=== PATIENT | male | born 1950 | race Caucasian/White ===

== ENCOUNTER 2018-06-21 02:40 | Inpatient (IN) | payer OTHER ==
[~2018-06-21] VITALS: Ht 182.9 cm; Wt 111.1 kg
[2018-06-21 02:42] VITALS: BP_SYST 163
[2018-06-21] MEDS ORDERED: ASPIRIN 81 MG TAB.CHEW PO ONE (03:00)
[2018-06-21] MEDS ORDERED: NITROGLYCERIN 0.4 MG TAB.SUBL SL ONE (03:00)
[2018-06-21] MEDS ORDERED: MAG HYDROX/AL HYDROX/SIMETH 30 ML, BELLADONNA ALKALOIDS/PHENOBARB 10 ML, LIDOCAINE VISC... PO ONE ×3 (03:00)
[2018-06-21 03:21] LABS: BASOPHILS % (AUTO) 0.5 % (0.0-2.0); EOSINOPHILS # (AUTO) 0.2 K/uL (0.0-0.4); EOSINOPHILS % (AUTO) 2.5 % (0.0-4.0); HEMATOCRIT 48.4 % (36-54); HEMOGLOBIN 16.4 g/dL (14.0-18.0); LYMPHOCYTES % (AUTO) 26.7 % (20.5-51.5); MEAN CORPUSCULAR HEMOGLOBIN 32 pg (27-31); MEAN CORPUSCULAR HGB CONC 34 % (32-36); MEAN CORPUSCULAR VOLUME 96 fL (79.0-98.0); MONOCYTES # (AUTO) 0.7 K/uL (0.0-1.0); MONOCYTES % (AUTO) 9.1 % (1.7-9.3); NEUTROPHILS # (AUTO) 4.5 K/uL (1.8-7.7); NEUTROPHILS % (AUTO) 61.2 % (40.0-70.0); PLATELET COUNT (AUTO) 208 K/uL (130-430); RED BLOOD CELL COUNT(AUTO) 5.07 MIL/uL (4.2-6.2); RED CELL DISTRIBUTION WIDTH 11.9 % (9.0-15.0); WHITE BLOOD COUNT (AUTO) 7.4 K/uL (4.8-10.8)
[2018-06-21 03:27] LABS: INR 0.9 (0.80-1.20); PROTHROMBIN TIME 9.3 SECS (9.5-12.5)
[2018-06-21 03:29] LABS: POTASSIUM 3.9 mmol/L (3.5-5.1)
[2018-06-21 03:40] LABS: ALBUMIN 3.4 g/dL (3.4-4.8); CREATININE 0.96 mg/dL (0.55-1.30); TOTAL BILIRUBIN 0.4 mg/dL (0.0-1.0)
[2018-06-21] MEDS ORDERED: GLUC100017 PO (05:18)
[2018-06-21] MEDS ORDERED: VITA1CAP PO (05:18)
[2018-06-21] MEDS ORDERED: LORA10TA7 PO (05:18)
[2018-06-21] MEDS ORDERED: OMEG1CAP PO (05:18)
[2018-06-21] MEDS ORDERED: OCUVITE PO (05:18)
[2018-06-21 05:55] VITALS: BP_SYST 133
[2018-06-21] MEDS ORDERED: LORazepam 2 MG/ML VIAL IVP PRN (08:15)
[2018-06-21] MEDS ORDERED: ACETAMINOPHEN 325 MG TABLET PO PRN (08:15)
[2018-06-21] MEDS ORDERED: HYDROcodone/ACETAMIN 5-325 MG TAB (NORCO/ VICODIN) PO PRN (08:15)
[2018-06-21] MEDS ORDERED: ONDANSETRON HCL 4 MG/2 ML VIAL IVP PRN (08:15)
[2018-06-21] MEDS ORDERED: HYDROcodone/ACETAMIN 10-325 MG TAB PO PRN (08:15)
[2018-06-21] MEDS ORDERED: GLUCOSAMINE SULFATE 1000 MG PO SCH (09:00)
[2018-06-21] MEDS: VITAMIN B COMPLEX 1 CAP/TAB PO SCH (09:26)
[2018-06-21] MEDS: LORATADINE 10 MG TABLET PO SCH (09:27)
[2018-06-21] MEDS: OMEGA-3/DHA/EPA/FISH OIL 1 GM CAPSULE PO SCH (09:27)
[2018-06-21] MEDS: BETA-CAROTENE W-C & E/ZN/CU TABLET PO SCH (09:27)
[2018-06-21 12:26] VITALS: BP_SYST 130
[2018-06-21] MEDS: NORMAL SALINE 5 ML DISP.SYRIN IVF SCH ×2 (15:35→22:04)
[2018-06-21 16:34] VITALS: BP_SYST 134
[2018-06-21] MEDS ORDERED: METOPROLOL TARTRATE 25 MG TABLET PO ONE (19:52)
[2018-06-21 20:00] VITALS: BP_SYST 153
[2018-06-21] MEDS ORDERED: HEPARIN 25,000 UNITS/D5W 250ML 250 ML IV PRN (20:00)
[2018-06-21] MEDS ORDERED: ASPIRIN 81 MG TABLET(ECOTRIN) PO ONE (20:00)
[2018-06-21] MEDS ORDERED: ATORVASTATIN 20 MG TABLET PO SCH (21:00)
[2018-06-21] MEDS ORDERED: HEPARIN SODIUM,PORCINE 5000 UNITS/ML VIAL ONE (21:06)
[2018-06-21] MEDS ORDERED: HEPARIN 25,000 UNITS/D5W 250ML 250 ML IV ONE (21:06)
[2018-06-21] MEDS ORDERED: *HEPARIN PER PHARMACY XX ONE (21:45)
[2018-06-21] MEDS: METOPROLOL TARTRATE 25 MG TABLET PO SCH (21:54)
[2018-06-21] MEDS ORDERED: HEPARIN SODIUM,PORCINE 3000 UNITS/0.6 ML BOLUS IVP PRN (22:00)
[2018-06-21] MEDS: HEPARIN 25,000 UNITS in 250 ML PREMIX IV PRN (22:26)
[2018-06-22 00:36] VITALS: BP_SYST 128
[2018-06-22] MEDS: NORMAL SALINE 5 ML DISP.SYRIN IVF SCH ×2 (05:51→14:13)
[2018-06-22 06:13] LABS: CALCIUM 8.5 mg/dL (8.4-11.0); CREATININE 0.92 mg/dL (0.55-1.30); POTASSIUM 3.6 mmol/L (3.5-5.1)
[2018-06-22] MEDS: HEPARIN SODIUM,PORCINE 2000 UNITS/0.4 ML BOLUS IVP PRN ×2 (06:25→13:36)
[2018-06-22 06:32] LABS: BASOPHILS % (AUTO) 0.3 % (0.0-2.0); EOSINOPHILS # (AUTO) 0.2 K/uL (0.0-0.4); EOSINOPHILS % (AUTO) 2.5 % (0.0-4.0); HEMATOCRIT 46.2 % (36-54); HEMOGLOBIN 15.8 g/dL (14.0-18.0); LYMPHOCYTES # (AUTO) 2.1 K/uL (1.0-5.5); LYMPHOCYTES % (AUTO) 28.3 % (20.5-51.5); MEAN CORPUSCULAR HEMOGLOBIN 33 pg (27-31); MEAN CORPUSCULAR HGB CONC 34 % (32-36); MEAN CORPUSCULAR VOLUME 95 fL (79.0-98.0); MONOCYTES # (AUTO) 0.6 K/uL (0.0-1.0); MONOCYTES % (AUTO) 8.7 % (1.7-9.3); NEUTROPHILS # (AUTO) 4.4 K/uL (1.8-7.7); NEUTROPHILS % (AUTO) 60.2 % (40.0-70.0); PLATELET COUNT (AUTO) 193 K/uL (130-430); RED BLOOD CELL COUNT(AUTO) 4.86 MIL/uL (4.2-6.2); RED CELL DISTRIBUTION WIDTH 11.6 % (9.0-15.0); WHITE BLOOD COUNT (AUTO) 7.3 K/uL (4.8-10.8)
[2018-06-22 08:31] VITALS: BP_SYST 132
[2018-06-22] MEDS ORDERED: ASPIRIN 81 MG TABLET(ECOTRIN) PO SCH (09:00)
[2018-06-22] MEDS: BETA-CAROTENE W-C & E/ZN/CU TABLET PO SCH (09:11)
[2018-06-22] MEDS: LORATADINE 10 MG TABLET PO SCH (09:11)
[2018-06-22] MEDS: OMEGA-3/DHA/EPA/FISH OIL 1 GM CAPSULE PO SCH (09:11)
[2018-06-22] MEDS: METOPROLOL TARTRATE 25 MG TABLET PO SCH (09:12)
[2018-06-22] MEDS: VITAMIN B COMPLEX 1 CAP/TAB PO SCH (09:13)
[2018-06-22 12:39] VITALS: BP_SYST 132
[2018-06-22 12:40] VITALS: BP_SYST 137
[2018-06-22] MEDS: HEPARIN 25,000 UNITS in 250 ML PREMIX IV PRN (13:38)
== END 2018-06-22 14:37 | disposition short-term general hospital (02) | DRG 282 ==
LOC: SED 02:40 → STU 05:48
PROVIDERS: ADMIT Preventive Medicine Preventive Medicine/Occupational Environmental Medicine; ATTEND Preventive Medicine Preventive Medicine/Occupational Environmental Medicine
DX: I21.4 Non-ST elevation (NSTEMI) myocardial infarction (principal); I25.110 Atherosclerotic heart disease of native coronary artery with unstable angina pectoris; E78.5 Hyperlipidemia, unspecified; E66.9 Obesity, unspecified; Z68.33 Body mass index [BMI] 33.0-33.9, adult; Z79.899 Other long term (current) drug therapy; I10 Essential (primary) hypertension
CPT/HCPCS: 36415; 71045; 80048; 80053; 82550-TC; 83880; 84484; 85025; 85610-TC; 85730-TC; 93005; 93306; 99291; J1644; J2001